=== PATIENT | female | born 2000 | race Caucasian/White ===

== ENCOUNTER 2020-07-19 19:26 | Emergency (ER) | payer BC ==
[~2020-07-19] VITALS: Ht 162.6 cm; Wt 90.9 kg
[2020-07-19 19:43] VITALS: TEMP 98
[2020-07-19 22:15] VITALS: BP 132/84; PULSE 87
== END 2020-07-19 22:15 | disposition home or self-care (01) ==
LOC: COL.ER 19:26
DX: S61.211A Laceration without foreign body of left index finger without damage to nail, initial encounter (principal); W26.0XXA Contact with knife, initial encounter